=== PATIENT | male | born 1980 ===

== ENCOUNTER 2022-06-13 11:41 | Emergency (ER) | payer OTHER ==
[~2022-06-13] VITALS: Ht 175.3 cm; Wt 99.1 kg
[2022-06-13] MEDS ORDERED: BACL10TA PO (12:44)
[2022-06-13] MEDS ORDERED: NAPR-1024 PO (12:44)
[2022-06-13] MEDS ORDERED: DULO-114 PO (12:44)
[2022-06-13] MEDS ORDERED: [UNRECOGNIZED DRUG - CODE] PO (12:44)
[2022-06-13] MEDS: DEXAMETHASONE 4 MG TABLET PO ONE (13:18)
[2022-06-13] MEDS: KETOROLAC TROMETHAMINE 60 MG/2 ML VIAL IM ONE (13:19)
[2022-06-13 15:45] VITALS: BP 135/72
== END 2022-06-13 16:08 | disposition home or self-care (01) ==
LOC: EMS 11:46
DX: M54.10 Radiculopathy, site unspecified (principal)
CPT/HCPCS: 99284; 72125; 96372; J8540; J1885